=== PATIENT | female | born 1995 | race Caucasian/White ===

== ENCOUNTER 2025-01-20 10:30 | Outpatient (RCR) | payer MEDICAID, SELFPAY ==
--- NOTE | 2024-12-27 15:10 | PTNOTE_ITS ---
PT OP Initial Eval Patient Information Outpatient Physical Therapy Treatment Date: 12/27/24 Visit Reasons: Back pain Medical Diagnosis: Back Pain Treatment Dx #1: Back Pain Start of Care: 12/27/24 Date of Onset: 2016 Smoking Status Smoking Status: Never smoker Initial Assessment Subjective: Pt is a 29 y/o female reports of chronic back pain with intermittent pain down the right leg. Pt denies of numbness or tingling down the leg. Pt's past MRI showed mild DDD of the L5-S1 (2017 images). Pt has limitation with sitting, standing, walking, chores, self care, cooking, and recreational activities. Objective: L/S AROM: all motions are WFL with end range pain into extension Hip PROM: all motions are WFL Hip MMTs: grossly 3+/5 Special Test (+) chatman Muscle Length: Hs tightness Assessment: Pt demonstrate back pain with mobility deficits leading to difficulty with ADLs. Pt will benefit from physical therapy to increase ROM, strength, and work on mobility. Short Term and Intermediate Goals 1) Increase L/S AROM WNL in 6 wks to be able to perform chores 2) Decrease back pain to 2/10 in 6 wks to be able to sit and stand more than 30 mins 3) Increase core strength WFL in 6 wks to be able to perform recreational activities. 4) Increase hip MMTs grossly to 4-/5 in 6 wks to be able to walk more than 30 mins 5) Indep with HEP Treatment Plan 1) Manual Therapy 2) Therapeutic Activities 3) Therapeutic Exercises 4) Modalities (ice, heat, traction) Frequency and Duration: 2 x wk for 6 wks Certification Dates: 12/27/24 to 03/28/25 Procedure Charges OP PT Eval Mod Complex 30 minutes: Yes
--- NOTE | 2025-01-03 11:34 | PT.ODAYNRPT ---
PT Outpatient Daily Note OP Daily Note Outpatient Physical Therapy Treatment Date: 01/03/25 Visit Reasons: Back pain Subjective: Pt reports low and mid back pain but no symptoms in the R LE today. Pt mentioned if she is standing, sitting or walking for prolonged periods her R leg feels weak and numb. Objective: Please see flow sheet for ther ex list. Assessment: Pt instructed on repeated lumbar extension in standing, pt encouraged to try when she has B LE symptoms to assess response in future visit. Plan: Assess response to HEP. Length of Time (minutes) of Treatment: 30 Minutes Procedure Charges Therapeutic Exercise 30 minutes: Yes
--- NOTE | 2025-01-05 11:15 | PT.ODAYNRPT ---
PT Outpatient Daily Note OP Daily Note Outpatient Physical Therapy Treatment Date: 01/05/25 Visit Reasons: Back pain Subjective: Pt reports back is doing ok, no complaints post last session. Objective: Please see flow sheet for ther ex list. Assessment: Pt demonstrates good tolerance with added interventions. Plan: Continue with poC. Length of Time (minutes) of Treatment: 30 Minutes Procedure Charges Therapeutic Exercise 30 minutes: Yes
--- NOTE | 2025-01-11 11:10 | PT.ODAYNRPT ---
PT Outpatient Daily Note OP Daily Note Outpatient Physical Therapy Treatment Date: 01/11/25 Visit Reasons: Back pain Subjective: Pt reports low back pain is doing good but continues to have mid back pain on R side. Objective: Please see flow sheet for ther ex list. Assessment: Added thoracic rotation exercise pt tolerated well. Plan: Continue with pOC. Length of Time (minutes) of Treatment: 30 Minutes Procedure Charges Therapeutic Exercise 30 minutes: Yes
--- NOTE | 2025-01-18 11:05 | PT.ODAYNRPT ---
PT Outpatient Daily Note OP Daily Note Outpatient Physical Therapy Treatment Date: 01/18/25 Visit Reasons: Back pain Subjective: Pt's back is feeling a little bit better, however, still has some pain on the side of the back R>L. Pt wants to review back hip images Objective: Please see flow chart for list of ther ex performed Assessment: heat helped patient tolerate supine exercises. Review lumbar and hip imaging again with patient to clarify MD's diagnosis. Plan: Continue with PT Length of Time (minutes) of Treatment: 30 Minutes Procedure Charges Therapeutic Exercise 30 minutes: Yes
--- NOTE | 2025-01-20 11:45 | PT.ODS1RPT ---
PT OP Progress/Discharge Note Date of Service: 01/20/25 Progress Note/DC Note Progress Note/Discharge Note: DC Note Patient Information Visit Reasons: Back pain Medical Diagnosis: Back Pain Treatment Dx #1: Back Pain Service Continue Service or Discharge: Discharge Discharge Date: 01/20/25 Status Subjective: Pt's back still painful and reports of right LE pain. Pt continue to have limitation with sitting, standing, chores, lifting, and recreational activities. Pt will like to stop physical therapy and follow up with provider for a updated MRI. Objective: L/S AROM: all motions are WFL Hip PROM: all motions are WNL Hip MMTs: grossly 3+/5 Assessment: Pt demonstrate functional L/S mobility and core strength, however, continues to have pain leading to difficulty with ADLs. Pt will no longer benefit from physical therapy due to minimal progress towards goals. Recommend updated MRI to help rule in/out nature of pain. Pt was instructed on HEP during her last session and educated to continue exercises to maintain overall mobility. Pt performed all exercises safely, thank you for your referrals. Plan: D/C home with HEP and follow up with MD Recommend L/S MRI Procedure Charges Therapeutic Exercise 30 minutes: Yes
== END 2025-01-25 23:59 | disposition home or self-care (01) ==
LOC: CPTX 10:30
PROVIDERS: PCP Physician Assistant; Referring Provider Physician Assistant; Visit Provider Physician Assistant
DX: M51.372 Other intervertebral disc degeneration, lumbosacral region with discogenic back pain and lower extremity pain (principal); G89.29 Other chronic pain; R26.2 Difficulty in walking, not elsewhere classified
CPT/HCPCS: 97110; 97162

== ENCOUNTER → 2025-06-22 | Outpatient (CLI) | payer MEDICAID, SELFPAY ==
--- NOTE | 2025-06-22 12:00 | XR_ITS ---
Examination: MRI lumbar spine without contrast Date and time of exam: June 22, 2025, 1304 hours, comparison 06/05/2017 INDICATIONS: Low back pain 10 years worse the last 6 months Technique: Multiple MRI axial and sagittal sections lumbar spine. Sagittal T2-weighted images, TR 3500, TE 118 T1 weighted transverse sections, TR 688 T8.5, T2-weighted sagittal sections T1 weighted sagittal sections TR 621, TE 30 T2 axial sections, TR 4, 190, TE 84. Findings: Adequate alignment lumbar vertebral bodies No lumbar fracture Mild disc narrowing L5-S1 Disc desiccation L4-L5, L5-S1 Adequate marrow signal lumbar vertebral bodies L5-S1 4 mm central lumbar disc bulge, no ganglionic compression L4-L5 and more cephalad levels unremarkable IMPRESSION: Degenerative disc disease L4-L5, L5-S1 L5-S1 4 mm central lumbar disc bulge
--- NOTE | 2025-06-22 12:30 | XR_ITS ---
Examination: MRI thoracic spine without contrast. Date and time of exam: June 22, 2025, 1304 hours INDICATIONS: Back pain 10 years worse the last 6 months Technique: Multiple sagittal and axial images of the thoracic spine have been obtained. T1 weighted localizer, sagittal T2 weighted images, TR 30-50, TE 148, T1 weighted sagittal images, TR 650, TE 14, T2-weighted transverse images, TR 6770, TE 142 Findings: Adequate alignment thoracic vertebral bodies No thoracic fracture. Mild diffuse thoracic disc narrowing. No localized enlargement thoracic cord. Axial images demonstrate no focal thoracic disc protrusion No impingement upon the thoracic cord No syrinx cavity Impression: Mild diffuse thoracic degenerative disc disease No focal thoracic disc protrusion
== END | disposition home or self-care (01) ==
LOC: SMRI 11:42
PROVIDERS: PCP Physician Assistant; Referring Provider Physician Assistant; Visit Provider Physician Assistant
DX: M51.34 Other intervertebral disc degeneration, thoracic region (principal); M51.360 Other intervertebral disc degeneration, lumbar region with discogenic back pain only; M51.370 Other intervertebral disc degeneration, lumbosacral region with discogenic back pain only
CPT/HCPCS: 72146; 72148